=== PATIENT | female | born 1960 ===

== ENCOUNTER 2017-03-15 11:46 | Day surgery (SDC) | payer MEDICAID ==
[2017-03-15] MEDS ORDERED: Lactated Ringer's 500 ML IV ONE (12:01)
[2017-03-15 12:17] VITALS: O2SAT 100
[2017-03-15 13:13] VITALS: TEMP 97
[2017-03-15 13:27] VITALS: BP 100/40; PULSE 53; RESP 16
== END 2017-03-15 14:08 | disposition home or self-care (01) ==
LOC: H.ENDO 11:46
PROVIDERS: ATTEND Internal Medicine Gastroenterology
DX: Z12.11 Encounter for screening for malignant neoplasm of colon (principal); I10 Essential (primary) hypertension; D12.4 Benign neoplasm of descending colon; K62.1 Rectal polyp; K57.30 Diverticulosis of large intestine without perforation or abscess without bleeding